=== PATIENT | female | born 1935 | race Caucasian/White ===

== ENCOUNTER 2016-12-31 20:31 | Emergency (ER) | payer OTHER ==
[~2016-12-31] VITALS: Ht 162.6 cm; Wt 68.0 kg
[~2016-12-31 20:31] MED LIST: LEVO25CA; SIMV80TA62
[2016-12-31 20:58] VITALS: BP 153/65
[2016-12-31] MEDS ORDERED: TETANUS-DIPTH-ACEL PERTUSSIS 0.5ML SYRG IM ONE ×2 (22:45→22:57)
== END 2016-12-31 23:15 | disposition home or self-care (01) ==
LOC: ER 20:36
DX: S61.402A Unspecified open wound of left hand, initial encounter (principal); L03.114 Cellulitis of left upper limb; E78.5 Hyperlipidemia, unspecified; E07.89 Other specified disorders of thyroid; Z88.6 Allergy status to analgesic agent; W54.0XXA Bitten by dog, initial encounter; Y93.89 Activity, other specified; Y99.8 Other external cause status; Y92.89 Other specified places as the place of occurrence of the external cause
CPT/HCPCS: 90471; 90715

== ENCOUNTER 2019-03-15 15:20 | Inpatient (IN) | payer BC, MEDICAID ==
[~2019-03-15] VITALS: Ht 162.6 cm; Wt 71.6 kg
[~2019-03-15 15:20] MED LIST changes: -LEVO25CA; +LEVO25CA2
[2019-03-15] MEDS ORDERED: SODIUM CHLORIDE 0.9% 1,000 ML IV ONE ×2 (16:45→20:00)
[2019-03-15] MEDS ORDERED: MORPHINE SULFATE 4 MG/ML SYR/VIAL IV ONE (16:45)
[2019-03-15] MEDS ORDERED: ONDANSETRON HCL 4 MG/2 ML VIAL IV ONE (16:45)
[2019-03-15 16:49] LABS: Basophils # (auto) 0.1 uL; Basophils % (auto) 0.5 % (0.0-2.0); Eosinophils # (auto) 0 uL; Eosinophils % (auto) 0.1 % (0.0-7.0); Hematocrit 40.7 % (36.0-46.0); Hemoglobin 13.4 g/dL (12.2-16.2); Lymphocytes # (auto) 0.3 uL; Lymphocytes % (auto) 3.4 % (10.0-50.0); Mean Corpuscular Hemoglobin 28.6 pg (28.0-32.0); Mean Corpuscular Volume 86.9 fL (80.0-100.0); Monocytes # (auto) 0.4 uL; Monocytes % (auto) 4.1 % (0.0-12.0); Neutrophils # (auto) 9.3 uL; Neutrophils % (auto) 91.9 % (37.0-80.0); Platelet Count (auto) 192 10^3/uL (140-450); Red Blood Cells 4.69 10^6/uL (4.0-5.20); Red Cell Distribution Width 14.8 % (11.8-14.3); White Blood Cell 10.1 10^3/uL (4.4-10.8)
[2019-03-15 17:05] LABS: Albumin 3.9 g/dL (3.4-5.0); Anion Gap 6 (5-15); Blood Urea Nitrogen 19 mg/dL (7-18); Calcium 8.8 mg/dL (8.5-10.1); Carbon Dioxide 27 mmol/L (21-32); Chloride 108 mmol/L (98-107); Glucose 199 mg/dL (74-106); Potassium 4.2 mmol/L (3.5-5.1); Sodium 141 mmol/L (136-145)
[2019-03-15 17:11] LABS: Alanine Aminotransferase 31 U/L (13-56); Alkaline Phosphatase 92 U/L (45-117); Aspartate Aminotransferase 25 U/L (15-37); BUN/Creatinine Ratio 19.6; Bilirubin, Total 0.4 mg/dL (0.2-1.0); GFR African American 71 mL/min; GFR Non-African American 59 mL/min
[2019-03-15 17:47] LABS: Amylase 67 U/L (25-115); Lipase 113 U/L (73-393)
[2019-03-15] MEDS ORDERED: HYDROmorphone HCL 2 MG/ML VL IV ONE (19:00)
[2019-03-15] MEDS ORDERED: NITROGLYCERIN 0.4 MG SL TAB SL PRN (19:30)
[2019-03-15] MEDS ORDERED: MORPHINE SULF INJ 2 MG/ML SYRINGE 1ML IV PRN (19:30)
[2019-03-15] MEDS ORDERED: ONDANSETRON HCL 4 MG/2 ML VIAL IV PRN (19:30)
[2019-03-15 21:04] VITALS: BP 138/63
[2019-03-15] MEDS ORDERED: ATORVASTATIN 20 MG TAB PO SCH (22:00)
[2019-03-15] MEDS: HYDROmorphone HCL 2 MG/ML VL IV PRN (22:24)
--- NOTE | 2019-03-15 23:37 | NUR ---
Telemetry admit from ER ANTONYTERRENCE admitted to Telemetry unit. Patient oriented to LUÍS HOUSER, miguelito RN, unit, room, bed, and unit policies regarding patient care and visiting hours. Patient now on continuous telemetry monitoring, tele box # [id number] and telemetry reading on arrival to unit is NSR. Patient placed on bedside oxygen, weighed by bed scale and encouraged to call if they need something. All questions and concerns addressed, patient verbalized understanding. Note: PATIENT HAD EPISODE OF NAUSEA AND VOMITING ON ARRIVAL. PATIENT ALSO NOTED VAGINAL BLEEDING, H&H 13.4/40.7. B/P 138/63, HR 90, 92% ON 02 AT 4L N/C. C/O LOWER ABDOMINAL PAIN SHARP AND PRESSURE. PATIENT ON IV FLUIDS NS AT 100 ML/HR.
[2019-03-15 23:38] VITALS: BP 138/63
[2019-03-16] MEDS ORDERED: ACET-1156 PO (00:41)
[2019-03-16] MEDS ORDERED: SIMV80TA73 PO (00:42)
[2019-03-16] MEDS ORDERED: LEVO112T4 PO (00:42)
--- NOTE | 2019-03-16 01:05 | NUR ---
PATIENT HAS A SCAB/LESION ON LOWER ABDOMEN BLACK 2 SPOTS ABOUT 0.2CM CIRCULAR, ONE WITH HARD AREA UNDERNEATH SKIN ABOUT 1"X0.5". WOUND NURSE CONSULT PENDING. PATIENT SAID IT WAS A LIZARD BITE FROM BEFORE, AND IT DRAINS SOMETIMES WITH PUS. WAS ALSO ON ANTIBIOTICS WHILE IN THE HOSPITAL IN PAST FOR THIS.
[2019-03-16] MEDS: HYDROmorphone HCL 2 MG/ML VL IV PRN (02:58)
[2019-03-16] MEDS: OXYCODONE W/ ACETAMINOPHEN 5/325MG TABLET PO PRN ×2 (03:05→09:06)
--- NOTE | 2019-03-16 03:13 | NUR ---
PERCOCET: VERIFIED REACTIONS OF PERCOCET, PATIENT NEEDS PAIN MEDICATION FOR SEVERE ABDOMINAL PAIN. PATIENT SAID IT GIVES HER THE FEELING OF "SPACING OUT/HIGH FEELING" PER PATIENT. PATIENT SAID SHE IS WILLING TO TRY DUE TO SHE NEEDS PAIN RELIEF. PHARMACIST CALLED AND NOTIFIED. MEDICATION GIVEN TO PATIENT. WILL CONTINUE TO MONITOR.
--- NOTE | 2019-03-16 04:14 | NUR ---
PATIENT CONTINUES TO C/O SEVERE PAIN 01/09, CALLED HOSPITALIST WITH NEW ORDER TO GIVE HYDROMORPHONE 2MG IV X1 AND FURNITURE DIPPER CONSULT FOR VAGINAL BLEEDING.
[2019-03-16 05:00] VITALS: BP 159/85
[2019-03-16] MEDS ORDERED: HYDROmorphone HCL 2 MG/ML VL IV ONE (05:00)
[2019-03-16] MEDS ORDERED: PANTOPRAZOLE 40 MG TAB PO SCH (06:00)
[2019-03-16] MEDS ORDERED: LEVOTHYROXINE SODIUM 25 MCG TAB PO SCH (06:00)
--- NOTE | 2019-03-16 07:50 | NUR ---
Opening Shift Note Assumed care of patient, awake and alertX3. No S/S of distress/SOB. Patient c/o abdominal pain,rates it 10/10. Will medicate as prescribed by MD. Instructed on POC and to call for assist PRN. Bed at lowest locked position and call light within reach. Will continue to monitor for changes Q1hr and PRN.
[2019-03-16 08:00] VITALS: BP 162/80
[2019-03-16 09:31] VITALS: BP 162/80
--- NOTE | 2019-03-16 10:54 | NUR ---
Vital Signs bp 187/91 hr 99 Spo2 95%, RR 19, Patient c/o abdominal pain. Patient states " the pain medications are not working", will notify
--- NOTE | 2019-03-16 10:55 | NUR ---
Per MEDICAL EDUCATOR MEDICAL EDUCATOR walked the patient to the restroom and she was mumbling "that shes in so much pain and no one is doing anything to help her', upon helping her sit on the toilet seat patient was unsteady while trying to sit down. MEDICAL EDUCATOR assisted patient back to bed.
--- NOTE | 2019-03-16 11:00 | NUR ---
WOUND CARE NOTE: IN TO SEE PATIENT AT THIS TIME FOR SKIN INTEGRITY. PATIENT RECENTLY ADMITTED TO [facility] WITH DIAGNOSIS OF ABDOMINAL PAIN. SHE HAS CURRENT VERONICA SCORE OF 20. PATIENT OBSERVED TO SELF TURN/REPOSITION SELF. SHE HAS W SMALL SCABBED PUNCTURE WOUNDS TO THE LOWER ABDOMEN. PATIENT STATES THAT SHE OBTAINED A BITE FROM HER PET REPTILE APPROXIMATELY 6 MONTHS AGO. SHE DID OBTAIN AN ABSCESS TO THE AREA. CURRENTLY, THE TWO PUNCTURE WOUNDS ARE CLOSED WITH ESCHAR SCAB. NO OPEN OR DRAINING AREAS NOTED. THERE IS MILD INDURATION WHERE THE ESCHAR SCABS ARE NOTED. PATIENT STATES THAT SHE HAS NO PAIN TO THE WOUNDS. LEFT OPEN TO AIR. WOUND PHOTO TAKEN AT THIS TIME FOR REFERENCE. NO OTHER SKIN INTEGRITY ISSUES NOTED AT THIS TIME. SKIN/WOUND CARE PLAN IMPLEMENTED AT THIS TIME FOR WOUNDS. NO FURTHER WOUND CARE MONITORING NEEDED AT THIS TIME. Addendum: 03/16/19 at 1559 by Danielle Fuentes RN Amended: Links added.
--- NOTE | 2019-03-16 11:05 | NUR ---
Paged for Dr. Rebel Lama, regarding elevated BP and pain medications. Awaiting call back.
--- NOTE | 2019-03-16 11:10 | NUR ---
OBGYN consult Dr. Womack at bedside, MD recommends higher level of care for patient.
[2019-03-16] MEDS ORDERED: ACETAMINOPHEN 325 MG TAB PO PRN (11:30)
[2019-03-16] MEDS ORDERED: hydrALAZINE HCL 20 MG/ML VL IV PRN (11:30)
[2019-03-16] MEDS ORDERED: OXYCODONE W/ ACETAMINOPHEN 5/325MG TABLET PO PRN ×2 (11:30→12:30)
[2019-03-16] MEDS ORDERED: amLODIPine BESYLATE 5 MG TAB PO ONE (11:30)
--- NOTE | 2019-03-16 12:00 | NUR ---
libertad fuentes MD Patient is c/o severe lower abdominal pain. Patient states " just give me something to knock me out, i cant take this anymore" Addendum: 03/16/19 at 1227 by Zoie Meade RN awaiting call back .
--- NOTE | 2019-03-16 12:35 | NUR ---
Re-assessed BP after medication was given, patient's blood pressure continues to be elevated, BP 199/112, Hr 103, Spo2 97%, RR 21 Awaiting for MD to call back.
--- NOTE | 2019-03-16 12:50 | NUR ---
MD orders Order received for 2mg morphine iv one time, Pain consult . Orders read back and verified.
--- NOTE | 2019-03-16 12:52 | NUR ---
Updated patient on new pain medication orders.
[2019-03-16] MEDS ORDERED: MORPHINE SULF INJ 2 MG/ML SYRINGE 1ML IV ONE (13:00)
--- NOTE | 2019-03-16 13:01 | NUR ---
Code Assist Walked in to give patient pain medications and found patient unresponsive in bed, friend at bedside. Asked friend to move aside so i can properly assess the patient. Sternal rubbed patient and did not get at response, patients NC was off, immediately called CAR DUMPER OPERATOR for assistance and a code assist. Protocol initiated.Patients blood sugar was too low to read, gave her dextrose IV. Patients blood pressure was 33/18, pulse was present, Spo2 77%. BP re-check was 138/69, HR 60, ER MD at bedside, protocol initiated. Patient was intubated, transfer orders to ICU. Friends were updated here.
[2019-03-16] MEDS ORDERED: ROCURONIUM 10MG/ML 10ML VIAL IV ONE (13:14)
[2019-03-16] MEDS ORDERED: ETOMIDATE (2MG/ML) 20ML VIAL IV ONE (13:14)
[2019-03-16] MEDS ORDERED: SUCCINYLCHOLINE CHLORIDE 20 MG/ML 10ML VIAL IV ONE (13:15)
[2019-03-16] MEDS ORDERED: MIDAZOLAM HCL 5 MG/ML-1ML VIAL ONE (13:18)
--- NOTE | 2019-03-16 13:40 | NUR ---
RECEIVED PT. VIA BED TO ICU RM. 101. TRANSFERRED TO ICU BED AND PLACED ON PROJECT CREW WORKER. PT. INTUBATED, RT PLACED ON VENT SIZE #7.5 ET, 24 AT THE LIP, AC-12, TV-500, PEEP-5, FIO2-100%. LUNGS CLEAR CARLEE. INSPIRATORY AND EXPIRATORY. PT.'S LIPS CYANOTIC AND FACE. HANDS BLUE CARLEE. PUPILS 2 AND FIXED. PT. DOES NOT HAVE GAG/COUGH REFLEX. NO RESPONSE TO PAINFUL/TACTILE STIMULI. NO SEDATION ON PT. HR, 80'S JUNCTIONAL RHYTHM WITHOUT ECTOPY. SBP 90'S, NO VASOPRESSORS AT THIS TIME. PT. IS FULL CODE STATUS.
[2019-03-16 13:45] VITALS: BP 93/65
[2019-03-16] MEDS ORDERED: fentaNYL Drip 2500mCg/250mlNS 250 ML IV SCH (13:48)
[2019-03-16] MEDS ORDERED: PROPOFOL 100 ML IV SCH (13:48)
--- NOTE | 2019-03-16 13:49 | NUR ---
Called ICU to give report, RN is getting patient accommodated, will call me back.
--- NOTE | 2019-03-16 13:55 | NUR ---
Oral gastric tube insertion OGT 16 FR. inserted per MD order. Placement verified by aspiration of stomach contents AND auscultation.
[2019-03-16] MEDS ORDERED: D5W/SOD CHL 0.45% 1,000 ML IV SCH (14:00)
--- NOTE | 2019-03-16 14:00 | NUR ---
Preston catheter insertion Patient assessed and determined to be in need of preston catheter. Order obtained from DR. Leeanne KAUR MD. Preston catheter 16 guage Faroese inserted with clean sterile technique. Patient tolerated well.
--- NOTE | 2019-03-16 14:07 | NUR ---
PT. HAS JUNCTIONAL RHYTHM HR-50'S, WEAK PULSE. SBP 80'S. PLACED CRASH CART AT BS AND CONNECTED PADS ON PT. FULL CODE STATUS.
--- NOTE | 2019-03-16 14:10 | NUR ---
JUNCTIONAL RHYTHM, HR DECREASED TO THE 30'S. NO PULSE FELT. CODE BLUE CALLED. SEE CODE SHEET.
[2019-03-16] MEDS ORDERED: DEXTROSE 50% SYRINGE 50 ML IV ONE ×2 (14:22→14:54)
--- NOTE | 2019-03-16 14:25 | NUR ---
DURING CODE BLUE DR. SURESH PLACED A-LINE RT. FEMORAL AND TLC RT. FEMORAL. PT. WAS PLACED ON DOPAMINE GTT. AT 20 MCG. AND EPINEPHRINE GTT. AT 10 MCG. PT. IS BEING TRANSCUTANEOUS PACED AT RATE OF 80 AND MA-28. ABD. DISTENDED. OGT CONNECTED TO LIS WITH 200 CC RED/BROWN DRAINAGE. D10 GTT. AT 75 CC/HR. BS WAS 13. RECHECK BS-114.
[2019-03-16 14:30] VITALS: BP 144/72
[2019-03-16] MEDS ORDERED: DEXTROSE 10% 1,000 ML IV ONE (14:36)
[2019-03-16] MEDS ORDERED: EPINEPHrine HCL 250 ML IV ONE (14:37)
--- NOTE | 2019-03-16 14:40 | NUR ---
DR. SURESH SPOKE WITH PT'S. NEPHCHOLO FOFANA WHO IS [place]. PT. MADE DNR STATUS BY NEPHCHOLO.
--- NOTE | 2019-03-16 15:15 | NUR ---
FRIENDS OF PT. AT THE BS.
[2019-03-16 15:18] VITALS: BP 45/22
--- NOTE | 2019-03-16 15:28 | NUR ---
PT. WENT INTO ASYSTOLE, NO PULSE FELT. PT. IS DNR STATUS. WILL INFORM DR. Leeanne KAUR.
[2019-03-16] MEDS ORDERED: EPINEPHrine HCL 1 MG/10 ML SYRG IV ONE (15:49)
[2019-03-16] MEDS ORDERED: CALCIUM CHLOR(10%) 100MG/ML 10ML SYRINGE IV ONE (15:49)
[2019-03-16] MEDS ORDERED: DOPamine 1600mCg/ml 400MG/250ml NSorD5 KIT/BAG IV ONE (15:49)
[2019-03-16] MEDS ORDERED: DEXTROSE (50%) 50ML SYRG IV ONE (15:49)
[2019-03-16] MEDS ORDERED: SODIUM BICARBONATE 8.4% INJ 50ML SYRINGE IV ONE (15:49)
--- NOTE | 2019-03-16 15:50 | NUR ---
DR. Leeanne KAUR HERE TO PRONOUNCE PT. TIME 1550. DR. Leeanne KAUR INFORMED PT'S. RIN FOFANA IN [place] OF PT. EXPIRING.
--- NOTE | 2019-03-16 15:53 | NUR ---
[facility] NOTIFIED OF PT'S. . WAITING FOR CALL BACK.
--- NOTE | 2019-03-16 16:20 | NUR ---
[facility] NOTIFIED. WAITING FOR CALL BACK.
--- NOTE | 2019-03-16 16:40 | NUR ---
[facility] RELEASED PT.
--- NOTE | 2019-03-16 17:15 | NUR ---
CALLED PT'S. NEPHEW BERE FOFANA TO FIND OUT PT'S. WISHES/PLANS AFTER SHE PASSES. HE SAID HE DOES NOT KNOW AND DOES NOT HAVE ANY INFO AND TO CALL HER NIECE AVTAR.
--- NOTE | 2019-03-16 17:25 | NUR ---
PT'S. NIECE AVTAR APURVADenny GAVE PERMISSION TO TAKE PT'S. BELONGINGS HM. NIECE AND NEPHEW IN [place], NO LIVING RELATIVES IN THE [facility]. SPOKE WITH NIECE REGARDING PT'S. WISHES AND ARRANGEMENTS IF SHE HAD ANY. AVTAR SAID SHE DOES NOT KNOW AND WILL SPEAK WITH HER NEPHEW AND SEE IF THEY HAVE ANY INFORMATION AND CALL US BACK.
--- NOTE | 2019-03-16 17:40 | NUR ---
FRIEND MARÍA PICKED UP PT'S. BELONGINGS.
--- NOTE | 2019-03-16 18:04 | NUR ---
SPOKE WITH TRANSPORT AIRCREWMAN AND BODY RELEASED CASE # [id number]. WAITING FOR FAMILY TO CALL WITH MORTUARY INFO. WILL REMOVE ALL LINES AND TUBES.
--- NOTE | 2019-03-16 18:50 | NUR ---
ALL LINES AND TUBES REMOVED. BURLAP BAG SEWER CLEARED PT.
--- NOTE | 2019-03-16 20:35 | NUR ---
[facility] transferred out pt via gurney to [facility]. paper in the chart
[2019-03-17] MEDS ORDERED: amLODIPine BESYLATE 5 MG TAB PO SCH (10:00)
== END 2019-03-16 15:50 | disposition expired | DRG 754 ==
LOC: ER 15:24 → TELE 15:25 → TELE-CENTR 20:37 → ICU WEST 03-16 13:46
PROVIDERS: ADMIT Nurse Practitioner Acute Care; ATTEND Nurse Practitioner Acute Care
PROC: 0BH17EZ Insertion of Endotracheal Airway into Trachea, Via Natural or Artificial Opening (ICD-10-PCS; principal; 2019-03-16)
PROC: 5A12012 Performance of Cardiac Output, Single, Manual (ICD-10-PCS; 2019-03-16)
PROC: 04HY32Z Insertion of Monitoring Device into Lower Artery, Percutaneous Approach (ICD-10-PCS; 2019-03-16)
PROC: 06HY33Z Insertion of Infusion Device into Lower Vein, Percutaneous Approach (ICD-10-PCS; 2019-03-16)
PROC: 5A1935Z Respiratory Ventilation, Less than 24 Consecutive Hours (ICD-10-PCS; 2019-03-16)
DX: C55 Malignant neoplasm of uterus, part unspecified (principal); J96.00 Acute respiratory failure, unspecified whether with hypoxia or hypercapnia; E87.2 Acidosis; R57.9 Shock, unspecified; K29.00 Acute gastritis without bleeding; N18.3 Chronic kidney disease, stage 3 (moderate); E03.9 Hypothyroidism, unspecified; E11.22 Type 2 diabetes mellitus with diabetic chronic kidney disease; E11.649 Type 2 diabetes mellitus with hypoglycemia without coma; E78.00 Pure hypercholesterolemia, unspecified; E78.5 Hyperlipidemia, unspecified; I46.9 Cardiac arrest, cause unspecified; I12.9 Hypertensive chronic kidney disease with stage 1 through stage 4 chronic kidney disease, or unspecified chronic kidney disease; K74.60 Unspecified cirrhosis of liver; K80.20 Calculus of gallbladder without cholecystitis without obstruction; N70.11 Chronic salpingitis; N85.2 Hypertrophy of uterus; N95.0 Postmenopausal bleeding; Z66 Do not resuscitate; Z78.0 Asymptomatic menopausal state; Z79.4 Long term (current) use of insulin; Z80.9 Family history of malignant neoplasm, unspecified; Z82.0 Family history of epilepsy and other diseases of the nervous system; Z85.048 Personal history of other malignant neoplasm of rectum, rectosigmoid junction, and anus; Z85.3 Personal history of malignant neoplasm of breast; Z85.42 Personal history of malignant neoplasm of other parts of uterus; Z85.72 Personal history of non-Hodgkin lymphomas; Z90.710 Acquired absence of both cervix and uterus; Z88.6 Allergy status to analgesic agent
CPT/HCPCS: 36415; 36600; 71045; 74176; 80053; 82150; 82805; 82962; 83690; 84484; 85025; 87081; 92950; 93005; 96361; 96374; 96375; G0378; J0171; J0330; J2250; J2405